=== PATIENT | female | born 1965 | race Hispanic/Latino ===

== ENCOUNTER 2021-01-25 00:36 | Inpatient (IN) | payer BC ==
[~2021-01-25] VITALS: Ht 157.5 cm; Wt 67.1 kg
[2021-01-25] VITALS (13 sets, daily range): BP systolic 116–171; BP diastolic 55–86
[2021-01-25] MEDS ORDERED: ASPIRIN 325MG TAB PO ONE (01:00)
[2021-01-25] MEDS ORDERED: ASPIRIN 81MG CHEW TAB ONE (01:04)
[2021-01-25] MEDS ORDERED: NITROGLYCERIN 1GM OINT 1 INCH/1GM TD ONE ×2 (01:05→01:30)
[2021-01-25] MEDS ORDERED: ASPIRIN 325MG TAB ONE (01:08)
[2021-01-25 01:15] LABS: BASOPHILS % (AUTO) 0.8 % (0.0-5.0); EOSINOPHILS % (AUTO) 2.1 % (0.0-8.0); HEMATOCRIT 43.3 % (36-48); LYMPHOCYTES % (AUTO) 36.9 % (21.0-51.0); MEAN CORPUSCULAR HEMOGLOBIN 28.5 pg (27.0-33.0); MEAN CORPUSCULAR VOLUME 86.4 fL (79-99); MONOCYTES % (AUTO) 8.9 % (3.0-13.0); NEUTROPHILS % (AUTO) 50.9 % (40.0-77.0); PLATELET COUNT (AUTO) 283 K/uL (130-400); RED BLOOD CELL COUNT(AUTO) 5.01 MIL/uL (4.00-5.50); WHITE BLOOD COUNT (AUTO) 11.3 K/uL (4.8-10.8)
[2021-01-25 01:31] LABS: INR 0.94 (0.85-1.15); PROTHROMBIN TIME 10.3 SEC (9.6-11.6)
[2021-01-25] MEDS ORDERED: METF750T46 PO (01:32)
[2021-01-25 01:33] LABS: ALBUMIN 3.3 g/dL (3.5-5.0); BILIRUBIN,TOTAL 0.3 mg/dL (0.2-1.0); CREATININE 0.6 mg/dL (0.5-1.5); PARTIAL THROMBOPLASTIN TIME 26.5 SEC (26.3-35.5); TOTAL PROTEIN, SERUM 7.4 g/dL (6.0-8.3)
[2021-01-25 01:39] LABS: B-TYPE NATRIURETIC PEPTIDE 180 pg/mL (0-100)
[2021-01-25] MEDS ORDERED: POTA-79 PO (01:41)
[2021-01-25] MEDS ORDERED: PIOG15TA66 PO (01:41)
[2021-01-25] MEDS ORDERED: METO100T14 PO (01:41)
[2021-01-25] MEDS ORDERED: AMLO-257 PO (01:41)
[2021-01-25] MEDS ORDERED: GLIM2TAB30 PO (01:41)
[2021-01-25] MEDS ORDERED: LISI40TA9 PO (01:41)
[2021-01-25] MEDS ORDERED: FURO40TA5 PO (01:41)
[2021-01-25 01:59] LABS: APPEARANCE,URINE Clear (CLEAR); BILIRUBIN,URINE Negative (NEGATIVE); COLOR,URINE Yellow (YELLOW); GLUCOSE, URINE (UA) 500 mg/dL (NEGATIVE); KETONES,URINE Negative (NEGATIVE); LEUKOCYTE ESTERASE ,URINE Negative (NEGATIVE); NITRATE,URINE Negative (NEGATIVE); OCCULT BLOOD,URINE Negative (NEGATIVE); PH,URINE 5.5 (5.0-8.0); PROTEIN,URINE Negative (NEGATIVE); UROBILINOGEN,URINE 0.2 mg/dL (0.2-1.0)
[2021-01-25] MEDS ORDERED: NITROGLYCERIN 0.4 MG SL TAB SL PRN (02:00)
[2021-01-25] MEDS ORDERED: ONDANSETRON 4MG INJ IV PRN (02:00)
[2021-01-25] MEDS: 0.9%NACL 1000ML 1,000 ML IV SCH ×3 (02:13→20:36)
[2021-01-25 02:22] LABS: BACTERIA,URINE None Seen /HPF (None Seen); RBC,URINE None Seen /HPF (0-1); SQUAMOUS EPITHELIAL CELL,UR Few /HPF (0-2); WBC,URINE None Seen /HPF (0-1); YEAST,URINE BUDDING None Seen /HPF (None Seen)
[2021-01-25 02:26] LABS: AMPHET/METH SCREEN,URINE NEGATIVE (NEGATIVE); BARBITURATE SCREEN, URINE NEGATIVE (NEGATIVE); BENZODIAZEPINES SCREEN,URINE NEGATIVE (NEGATIVE); CANNABINOID SCREEN,URINE NEGATIVE (NEGATIVE); COCAINE SCREEN,URINE NEGATIVE (NEGATIVE); OPIATE SCREEN,URINE NEGATIVE (NEGATIVE); PHENCYCLIDINE SCREEN,URINE NEGATIVE (NEGATIVE)
[2021-01-25 02:27] LABS: HEMOGLOBIN A1C 11.9 % (4.0-6.0)
[2021-01-25] MEDS: FAMOTIDINE 20MG TAB PO SCH ×3 (02:56→20:36)
[2021-01-25] MEDS ORDERED: DEXTROSE 50%-WATER 50 ML DISP.SYRIN IV PRN (03:00)
[2021-01-25] MEDS ORDERED: GLUCAGON 1MG KIT 1 MG ML IM PRN (03:00)
[2021-01-25] MEDS: ASPIRIN 81 MG EC TAB PO SCH (08:24)
[2021-01-25] MEDS: INSULIN HUMULIN R 100 UNIT/ML 3ML SQ SCH ×4 (08:24→20:36)
[2021-01-25] MEDS: NICOTINE 21 MG/ 24 HR PATCH TD SCH (08:25)
[2021-01-25] MEDS: ENOXAPARIN SODIUM 40 MG/0.4 ML SYRINGE SQ SCH (08:25)
[2021-01-25] MEDS: METOPROLOL TARTRATE 25 MG TAB PO SCH ×2 (08:25→20:36)
[2021-01-25] MEDS ORDERED: FAMOTIDINE 20MG TAB PO SCH (09:00)
[2021-01-25] MEDS: ACETAMINOPHEN 325 MG TAB PO PRN ×2 (11:24→20:35)
[2021-01-26] VITALS (8 sets, daily range): BP systolic 140–164; BP diastolic 68–90
[2021-01-26] MEDS: ACETAMINOPHEN 325 MG TAB PO PRN ×2 (04:12→18:05)
[2021-01-26 06:34] LABS: BASOPHILS % (AUTO) 0.8 % (0.0-5.0); EOSINOPHILS % (AUTO) 1.7 % (0.0-8.0); LYMPHOCYTES % (AUTO) 28.7 % (21.0-51.0); MEAN CORPUSCULAR HEMOGLOBIN 27.7 pg (27.0-33.0); MEAN CORPUSCULAR HGB CONC 31.8 g/dL (32.0-36.0); MEAN CORPUSCULAR VOLUME 87.1 fL (79-99); MONOCYTES % (AUTO) 9.8 % (3.0-13.0); NEUTROPHILS % (AUTO) 58.6 % (40.0-77.0); PLATELET COUNT (AUTO) 251 K/uL (130-400); RED BLOOD CELL COUNT(AUTO) 5.05 MIL/uL (4.00-5.50); RED CELL DISTRIBUTION WIDTH 13.2 % (11.0-15.5)
[2021-01-26 06:52] LABS: ALBUMIN 3.1 g/dL (3.5-5.0); BILIRUBIN,TOTAL 0.5 mg/dL (0.2-1.0); CREATININE 0.5 mg/dL (0.5-1.5); MAGNESIUM 1.9 mg/dL (1.80-2.40); POTASSIUM 3.8 mmol/L (3.5-5.1)
[2021-01-26] MEDS: FAMOTIDINE 20MG TAB PO SCH ×2 (08:39→21:30)
[2021-01-26] MEDS: ASPIRIN 81 MG EC TAB PO SCH (08:39)
[2021-01-26] MEDS: ATORVASTATIN 10 MG TABLET PO SCH (08:39)
[2021-01-26] MEDS: METOPROLOL TARTRATE 25 MG TAB PO SCH ×2 (08:39→21:30)
[2021-01-26] MEDS: FENOFIBRATE NANOCRYSTALLIZED 145 MG TAB PO SCH (08:39)
[2021-01-26] MEDS: ENOXAPARIN SODIUM 40 MG/0.4 ML SYRINGE SQ SCH (08:40)
[2021-01-26] MEDS: NICOTINE 21 MG/ 24 HR PATCH TD SCH (08:40)
[2021-01-26] MEDS: INSULIN HUMULIN R 100 UNIT/ML 3ML SQ SCH ×5 (09:05→21:30)
[2021-01-26] MEDS: INSULIN GLARGINE 100 UNITS/ML 10 ML VIAL SQ SCH (21:31)
[2021-01-27] VITALS (8 sets, daily range): BP systolic 128–159; BP diastolic 68–90
[2021-01-27] MEDS: ACETAMINOPHEN 325 MG TAB PO PRN ×2 (02:51→14:54)
[2021-01-27] MEDS: INSULIN HUMULIN R 100 UNIT/ML 3ML SQ SCH ×9 (07:30→21:43)
[2021-01-27] MEDS: ATORVASTATIN 10 MG TABLET PO SCH (08:22)
[2021-01-27] MEDS: FAMOTIDINE 20MG TAB PO SCH ×2 (08:22→21:00)
[2021-01-27] MEDS: METOPROLOL TARTRATE 25 MG TAB PO SCH ×2 (08:22→21:41)
[2021-01-27] MEDS: ENOXAPARIN SODIUM 40 MG/0.4 ML SYRINGE SQ SCH (08:22)
[2021-01-27] MEDS: ASPIRIN 81 MG EC TAB PO SCH (08:22)
[2021-01-27] MEDS: FENOFIBRATE NANOCRYSTALLIZED 145 MG TAB PO SCH (08:22)
[2021-01-27] MEDS: NICOTINE 21 MG/ 24 HR PATCH TD SCH (10:05)
[2021-01-27] MEDS ORDERED: ISOSORBIDE MONO 30MG SR TAB PO SCH (10:30)
[2021-01-27] MEDS: INSULIN GLARGINE 100 UNITS/ML 10 ML VIAL SQ SCH (21:42)
[2021-01-28 04:00] VITALS: BP 146/84
[2021-01-28] MEDS: INSULIN HUMULIN R 100 UNIT/ML 3ML SQ SCH ×7 (07:30→21:20)
[2021-01-28 08:00] VITALS: BP 160/82
[2021-01-28] MEDS ORDERED: REGADENOSON 0.4 MG/5 ML PF SYG IVP SCH (08:00)
[2021-01-28 12:00] VITALS: BP 145/78
[2021-01-28] MEDS: NICOTINE 21 MG/ 24 HR PATCH TD SCH (12:02)
[2021-01-28] MEDS: ENOXAPARIN SODIUM 40 MG/0.4 ML SYRINGE SQ SCH (12:03)
[2021-01-28] MEDS: METOPROLOL TARTRATE 25 MG TAB PO SCH ×2 (12:07→21:14)
[2021-01-28] MEDS: ASPIRIN 81 MG EC TAB PO SCH (12:07)
[2021-01-28] MEDS: ATORVASTATIN 10 MG TABLET PO SCH (12:07)
[2021-01-28] MEDS: FAMOTIDINE 20MG TAB PO SCH ×2 (12:07→21:14)
[2021-01-28] MEDS: FENOFIBRATE NANOCRYSTALLIZED 145 MG TAB PO SCH (12:07)
[2021-01-28] MEDS: ISOSORBIDE MONO 30MG SR TAB PO SCH (12:08)
[2021-01-28] MEDS ORDERED: TRAMADOL HCL 50 MG TABLET ONE (15:11)
[2021-01-28] MEDS: ACETAMINOPHEN 325 MG TAB PO PRN (15:19)
[2021-01-28] MEDS ORDERED: TRAMADOL HCL 50 MG TABLET PO SCH (15:30)
[2021-01-28 16:00] VITALS: BP 129/69
[2021-01-28 20:00] VITALS: BP 130/81
[2021-01-28] MEDS: INSULIN GLARGINE 100 UNITS/ML 10 ML VIAL SQ SCH (21:19)
[2021-01-29] VITALS: BP 155/82
[2021-01-29 04:00] VITALS: BP 150/86
[2021-01-29 06:25] LABS: BASOPHILS % (AUTO) 0.6 % (0.0-5.0); EOSINOPHILS % (AUTO) 2.1 % (0.0-8.0); HEMATOCRIT 42.4 % (36-48); LYMPHOCYTES % (AUTO) 31.7 % (21.0-51.0); MEAN CORPUSCULAR HEMOGLOBIN 27.8 pg (27.0-33.0); MEAN CORPUSCULAR HGB CONC 32.1 g/dL (32.0-36.0); MEAN CORPUSCULAR VOLUME 86.7 fL (79-99); MONOCYTES % (AUTO) 16.9 % (3.0-13.0); NEUTROPHILS % (AUTO) 48.4 % (40.0-77.0); PLATELET COUNT (AUTO) 230 K/uL (130-400); RED BLOOD CELL COUNT(AUTO) 4.89 MIL/uL (4.00-5.50); RED CELL DISTRIBUTION WIDTH 13.2 % (11.0-15.5)
[2021-01-29 06:34] LABS: CREATININE 0.6 mg/dL (0.5-1.5); MAGNESIUM 1.9 mg/dL (1.80-2.40); POTASSIUM 3.4 mmol/L (3.5-5.1)
[2021-01-29] MEDS: INSULIN HUMULIN R 100 UNIT/ML 3ML SQ SCH ×4 (06:38→21:20)
[2021-01-29 08:00] VITALS: BP 138/80
[2021-01-29] MEDS ORDERED: KCL 20 MEQ ERTAB PO SCH (08:30)
[2021-01-29] MEDS: ASPIRIN 81 MG EC TAB PO SCH (09:56)
[2021-01-29] MEDS: FAMOTIDINE 20MG TAB PO SCH ×2 (09:57→20:07)
[2021-01-29] MEDS: ISOSORBIDE MONO 30MG SR TAB PO SCH (09:57)
[2021-01-29] MEDS: ATORVASTATIN 10 MG TABLET PO SCH (09:57)
[2021-01-29] MEDS: AMLODIPINE 5 MG TAB PO SCH (09:57)
[2021-01-29] MEDS: METOPROLOL TARTRATE 25 MG TAB PO SCH ×2 (09:57→20:07)
[2021-01-29] MEDS: FENOFIBRATE NANOCRYSTALLIZED 145 MG TAB PO SCH (09:57)
[2021-01-29] MEDS: ENOXAPARIN SODIUM 40 MG/0.4 ML SYRINGE SQ SCH (09:58)
[2021-01-29] MEDS ORDERED: IOHEXOL-350 75 ML VIAL IV ONE (11:40)
[2021-01-29 12:00] VITALS: BP 140/84
[2021-01-29] MEDS: ACETAMINOPHEN 325 MG TAB PO PRN (15:20)
[2021-01-29] MEDS: NICOTINE 21 MG/ 24 HR PATCH TD SCH (15:20)
[2021-01-29 20:24] VITALS: BP 125/71
[2021-01-29] MEDS: INSULIN GLARGINE 100 UNITS/ML 10 ML VIAL SQ SCH (21:00)
[2021-01-29 23:10] VITALS: BP 144/75
[2021-01-30] VITALS (12 sets, daily range): BP systolic 120–155; BP diastolic 72–88
[2021-01-30] MEDS: INSULIN HUMULIN R 100 UNIT/ML 3ML SQ SCH ×3 (06:27→20:25)
[2021-01-30 06:53] LABS: BASOPHILS % (AUTO) 0.8 % (0.0-5.0); EOSINOPHILS % (AUTO) 2.5 % (0.0-8.0); HEMATOCRIT 44.3 % (36-48); LYMPHOCYTES % (AUTO) 28.4 % (21.0-51.0); MEAN CORPUSCULAR HEMOGLOBIN 28.1 pg (27.0-33.0); MEAN CORPUSCULAR HGB CONC 31.6 g/dL (32.0-36.0); MEAN CORPUSCULAR VOLUME 88.8 fL (79-99); MONOCYTES % (AUTO) 13.9 % (3.0-13.0); NEUTROPHILS % (AUTO) 54.2 % (40.0-77.0); PLATELET COUNT (AUTO) 238 K/uL (130-400); RED BLOOD CELL COUNT(AUTO) 4.99 MIL/uL (4.00-5.50); RED CELL DISTRIBUTION WIDTH 13.2 % (11.0-15.5); WHITE BLOOD COUNT (AUTO) 6.4 K/uL (4.8-10.8)
[2021-01-30 07:04] LABS: CREATININE 0.6 mg/dL (0.5-1.5); POTASSIUM 3.9 mmol/L (3.5-5.1)
[2021-01-30] MEDS: FENOFIBRATE NANOCRYSTALLIZED 145 MG TAB PO SCH (09:00)
[2021-01-30] MEDS: ASPIRIN 81 MG EC TAB PO SCH (09:00)
[2021-01-30] MEDS: AMLODIPINE 5 MG TAB PO SCH (09:00)
[2021-01-30] MEDS: ATORVASTATIN 10 MG TABLET PO SCH (09:00)
[2021-01-30] MEDS: ISOSORBIDE MONO 30MG SR TAB PO SCH (09:00)
[2021-01-30] MEDS: METOPROLOL TARTRATE 25 MG TAB PO SCH ×2 (09:00→20:16)
[2021-01-30] MEDS: FAMOTIDINE 20MG TAB PO SCH ×2 (09:00→20:16)
[2021-01-30] MEDS: NICOTINE 21 MG/ 24 HR PATCH TD SCH (09:00)
[2021-01-30] MEDS: ENOXAPARIN SODIUM 40 MG/0.4 ML SYRINGE SQ SCH (09:00)
[2021-01-30] MEDS ORDERED: IOHEXOL-350 50ML VIAL IV ONE ×2 (09:38→11:04)
[2021-01-30] MEDS ORDERED: SODIUM BICARB 50MEQ 50ML VIAL 50 ML ONE (09:38)
[2021-01-30] MEDS ORDERED: NITROGLYCERIN 2 MG VIAL IV ONE (09:38)
[2021-01-30] MEDS ORDERED: FENTANYL CITRATE PF 50 MCG/1 ML 2ML VIAL ONE (09:39)
[2021-01-30] MEDS ORDERED: MIDAZOLAM HCL 1 MG/ML 2ML VIAL ONE (09:39)
[2021-01-30] MEDS ORDERED: LIDOCAINE HCL 400MG/20ML VIAL ONE (09:39)
[2021-01-30] MEDS ORDERED: IOHEXOL 350 MG/ML 100ML INFUS..BTL IV ONE ×2 (09:39→11:04)
[2021-01-30] MEDS ORDERED: BIVALIRUDIN 250 MG/VIAL IV ONE (10:22)
[2021-01-30] MEDS ORDERED: LABETALOL 20MG VIAL IV ONE (10:30)
[2021-01-30] MEDS ORDERED: CLOPIDOGREL 300MG TAB ONE (11:40)
[2021-01-30] MEDS ORDERED: ASPIRIN 325MG EC TAB PO ONE (11:40)
[2021-01-30] MEDS ORDERED: 0.9%NACL 1000ML 1,000 ML IV SCH (12:00)
[2021-01-30] MEDS: INSULIN GLARGINE 100 UNITS/ML 10 ML VIAL SQ SCH (20:25)
[2021-01-31 03:53] VITALS: BP 135/83
[2021-01-31 05:06] LABS: HEMATOCRIT 40.8 % (36-48); MEAN CORPUSCULAR HEMOGLOBIN 28.3 pg (27.0-33.0); MEAN CORPUSCULAR HGB CONC 32.6 g/dL (32.0-36.0); MEAN CORPUSCULAR VOLUME 86.8 fL (79-99); RED BLOOD CELL COUNT(AUTO) 4.7 MIL/uL (4.00-5.50); RED CELL DISTRIBUTION WIDTH 12.9 % (11.0-15.5); WHITE BLOOD COUNT (AUTO) 7.6 K/uL (4.8-10.8)
[2021-01-31 05:20] LABS: CREATININE 0.6 mg/dL (0.5-1.5); POTASSIUM 3.7 mmol/L (3.5-5.1)
[2021-01-31] MEDS: INSULIN HUMULIN R 100 UNIT/ML 3ML SQ SCH ×4 (06:28→21:26)
[2021-01-31 08:13] VITALS: BP 117/72
[2021-01-31] MEDS: ATORVASTATIN 40 MG TABLET PO SCH (09:05)
[2021-01-31] MEDS: AMLODIPINE 5 MG TAB PO SCH (09:05)
[2021-01-31] MEDS: ASPIRIN 81 MG EC TAB PO SCH (09:06)
[2021-01-31] MEDS: FAMOTIDINE 20MG TAB PO SCH ×2 (09:06→20:45)
[2021-01-31] MEDS: FENOFIBRATE NANOCRYSTALLIZED 145 MG TAB PO SCH (09:06)
[2021-01-31] MEDS: ISOSORBIDE MONO 30MG SR TAB PO SCH (09:06)
[2021-01-31] MEDS: CLOPIDOGREL 75MG TAB PO SCH (09:06)
[2021-01-31] MEDS: METOPROLOL TARTRATE 25 MG TAB PO SCH ×2 (09:06→20:45)
[2021-01-31] MEDS: ENOXAPARIN SODIUM 40 MG/0.4 ML SYRINGE SQ SCH (09:07)
[2021-01-31] MEDS: NICOTINE 21 MG/ 24 HR PATCH TD SCH (09:13)
[2021-01-31] MEDS: ACETAMINOPHEN 325 MG TAB PO PRN (13:14)
[2021-01-31 16:00] VITALS: BP 111/74
[2021-01-31 20:00] VITALS: BP 142/73
[2021-01-31] MEDS: INSULIN GLARGINE 100 UNITS/ML 10 ML VIAL SQ SCH (21:28)
[2021-01-31 23:45] VITALS: BP 137/86
[2021-02-01] MEDS: TRAMADOL HCL 50 MG TABLET PO PRN ×2 (01:34→10:20)
[2021-02-01 03:45] VITALS: BP 153/74
[2021-02-01 05:24] LABS: BASOPHILS % (AUTO) 0.3 % (0.0-5.0); EOSINOPHILS % (AUTO) 2.2 % (0.0-8.0); HEMATOCRIT 38.8 % (36-48); LYMPHOCYTES % (AUTO) 39.4 % (21.0-51.0); MEAN CORPUSCULAR HEMOGLOBIN 28.2 pg (27.0-33.0); MEAN CORPUSCULAR HGB CONC 32.7 g/dL (32.0-36.0); MONOCYTES % (AUTO) 12.6 % (3.0-13.0); NEUTROPHILS % (AUTO) 45.2 % (40.0-77.0); PLATELET COUNT (AUTO) 207 K/uL (130-400); RED BLOOD CELL COUNT(AUTO) 4.51 MIL/uL (4.00-5.50); RED CELL DISTRIBUTION WIDTH 12.8 % (11.0-15.5); WHITE BLOOD COUNT (AUTO) 8.8 K/uL (4.8-10.8)
[2021-02-01 05:50] LABS: CREATININE 0.6 mg/dL (0.5-1.5); POTASSIUM 3.4 mmol/L (3.5-5.1)
[2021-02-01] MEDS: INSULIN HUMULIN R 100 UNIT/ML 3ML SQ SCH ×4 (06:12→21:14)
[2021-02-01 08:00] VITALS: BP 161/81
[2021-02-01] MEDS: ENOXAPARIN SODIUM 40 MG/0.4 ML SYRINGE SQ SCH (09:00)
[2021-02-01] MEDS ORDERED: KCL 20 MEQ ERTAB PO SCH (10:00)
[2021-02-01] MEDS: ATORVASTATIN 40 MG TABLET PO SCH (10:04)
[2021-02-01] MEDS: NICOTINE 21 MG/ 24 HR PATCH TD SCH (10:04)
[2021-02-01] MEDS: ASPIRIN 81 MG EC TAB PO SCH (10:04)
[2021-02-01] MEDS: METOPROLOL TARTRATE 25 MG TAB PO SCH ×2 (10:04→21:07)
[2021-02-01] MEDS: AMLODIPINE 5 MG TAB PO SCH (10:05)
[2021-02-01] MEDS: FAMOTIDINE 20MG TAB PO SCH ×2 (10:05→21:07)
[2021-02-01] MEDS: CLOPIDOGREL 75MG TAB PO SCH (10:05)
[2021-02-01] MEDS: FENOFIBRATE NANOCRYSTALLIZED 145 MG TAB PO SCH (10:12)
[2021-02-01] MEDS: KCL 20 MEQ ERTAB PO SCH (10:13)
[2021-02-01] MEDS: ISOSORBIDE MONO 30MG SR TAB PO SCH (10:14)
[2021-02-01 11:24] VITALS: BP 136/82
[2021-02-01 17:11] VITALS: BP 115/69
[2021-02-01 20:00] VITALS: BP 130/71
[2021-02-01] MEDS: INSULIN GLARGINE 100 UNITS/ML 10 ML VIAL SQ SCH (21:14)
[2021-02-01 23:33] VITALS: BP 144/81
[2021-02-02] VITALS (12 sets, daily range): BP systolic 150–170; BP diastolic 72–102
[2021-02-02 04:28] LABS: BASOPHILS % (AUTO) 0.5 % (0.0-5.0); HEMATOCRIT 40.3 % (36-48); LYMPHOCYTES % (AUTO) 39.3 % (21.0-51.0); MEAN CORPUSCULAR HEMOGLOBIN 27.6 pg (27.0-33.0); MEAN CORPUSCULAR HGB CONC 31.5 g/dL (32.0-36.0); MEAN CORPUSCULAR VOLUME 87.6 fL (79-99); MONOCYTES % (AUTO) 10.5 % (3.0-13.0); NEUTROPHILS % (AUTO) 46.4 % (40.0-77.0); PLATELET COUNT (AUTO) 225 K/uL (130-400); RED CELL DISTRIBUTION WIDTH 12.8 % (11.0-15.5); WHITE BLOOD COUNT (AUTO) 7.4 K/uL (4.8-10.8)
[2021-02-02 04:39] LABS: INR 1.05 (0.85-1.15); PROTHROMBIN TIME 11.4 SEC (9.6-11.6)
[2021-02-02 04:59] LABS: CREATININE 0.5 mg/dL (0.5-1.5); POTASSIUM 3.8 mmol/L (3.5-5.1)
[2021-02-02] MEDS: INSULIN HUMULIN R 100 UNIT/ML 3ML SQ SCH ×4 (06:29→21:27)
[2021-02-02] MEDS: FAMOTIDINE 20MG TAB PO SCH ×2 (09:00→21:09)
[2021-02-02] MEDS: CLOPIDOGREL 75MG TAB PO SCH (09:00)
[2021-02-02] MEDS: METOPROLOL TARTRATE 25 MG TAB PO SCH ×2 (09:00→21:09)
[2021-02-02] MEDS: ATORVASTATIN 40 MG TABLET PO SCH (09:00)
[2021-02-02] MEDS: ENOXAPARIN SODIUM 40 MG/0.4 ML SYRINGE SQ SCH (09:00)
[2021-02-02] MEDS: FENOFIBRATE NANOCRYSTALLIZED 145 MG TAB PO SCH (09:00)
[2021-02-02] MEDS: ISOSORBIDE MONO 30MG SR TAB PO SCH (09:00)
[2021-02-02] MEDS: AMLODIPINE 5 MG TAB PO SCH (09:00)
[2021-02-02] MEDS: ASPIRIN 81 MG EC TAB PO SCH (09:00)
[2021-02-02] MEDS: KCL 20 MEQ ERTAB PO SCH (09:30)
[2021-02-02] MEDS: NICOTINE 21 MG/ 24 HR PATCH TD SCH (10:00)
[2021-02-02] MEDS ORDERED: SODIUM BICARB 50MEQ 50ML VIAL 50 ML ONE (10:45)
[2021-02-02] MEDS ORDERED: BIVALIRUDIN 250 MG/VIAL IV ONE (10:45)
[2021-02-02] MEDS ORDERED: HEPARIN 10,000 UNIT/10ML (1,000 UNIT/ML) VIAL ONE (10:46)
[2021-02-02] MEDS ORDERED: NITROGLYCERIN 2 MG VIAL IV ONE (10:46)
[2021-02-02] MEDS ORDERED: LIDOCAINE HCL 400MG/20ML VIAL ONE (10:46)
[2021-02-02] MEDS ORDERED: IOHEXOL 350 MG/ML 100ML INFUS..BTL IV ONE (10:50)
[2021-02-02] MEDS ORDERED: FENTANYL CITRATE PF 50 MCG/1 ML 2ML VIAL ONE (11:00)
[2021-02-02] MEDS ORDERED: MIDAZOLAM HCL 1 MG/ML 2ML VIAL ONE (11:00)
[2021-02-02] MEDS ORDERED: CLOPIDOGREL 300MG TAB ONE (11:30)
[2021-02-02] MEDS ORDERED: ASPIRIN 325MG EC TAB PO ONE (11:30)
[2021-02-02] MEDS ORDERED: CLOP75TA14 PO (11:52)
[2021-02-02] MEDS ORDERED: AEC81 PO (11:52)
[2021-02-02] MEDS ORDERED: ATOR40TA69 PO (11:52)
[2021-02-02] MEDS ORDERED: 0.9%NACL 1000ML 1,000 ML IV SCH (12:00)
[2021-02-02] MEDS: TRAMADOL HCL 50 MG TABLET PO PRN (12:16)
[2021-02-02] MEDS: ACETAMINOPHEN 325 MG TAB PO PRN (21:10)
[2021-02-02] MEDS: INSULIN GLARGINE 100 UNITS/ML 10 ML VIAL SQ SCH (21:27)
[2021-02-03] VITALS: BP 149/90
[2021-02-03 04:00] VITALS: BP 150/90
[2021-02-03 05:59] LABS: BASOPHILS % (AUTO) 0.5 % (0.0-5.0); EOSINOPHILS % (AUTO) 2.8 % (0.0-8.0); HEMATOCRIT 43.2 % (36-48); LYMPHOCYTES % (AUTO) 33.8 % (21.0-51.0); MEAN CORPUSCULAR HEMOGLOBIN 27.8 pg (27.0-33.0); MEAN CORPUSCULAR HGB CONC 31.7 g/dL (32.0-36.0); MEAN CORPUSCULAR VOLUME 87.6 fL (79-99); MONOCYTES % (AUTO) 10.2 % (3.0-13.0); NEUTROPHILS % (AUTO) 52.3 % (40.0-77.0); PLATELET COUNT (AUTO) 246 K/uL (130-400); RED BLOOD CELL COUNT(AUTO) 4.93 MIL/uL (4.00-5.50); RED CELL DISTRIBUTION WIDTH 12.7 % (11.0-15.5); WHITE BLOOD COUNT (AUTO) 8.2 K/uL (4.8-10.8)
[2021-02-03 06:10] LABS: CREATININE 0.6 mg/dL (0.5-1.5); POTASSIUM 3.8 mmol/L (3.5-5.1)
[2021-02-03] MEDS: INSULIN HUMULIN R 100 UNIT/ML 3ML SQ SCH (06:28)
[2021-02-03 08:00] VITALS: BP 132/70
[2021-02-03] MEDS ORDERED: PANT40TA55 PO (08:53)
[2021-02-03] MEDS ORDERED: CLOPIDOGREL 75MG TAB PO SCH (09:00)
[2021-02-03] MEDS ORDERED: ASPIRIN 81MG CHEW TAB PO SCH (09:00)
[2021-02-03] MEDS: KCL 20 MEQ ERTAB PO SCH (09:30)
[2021-02-03] MEDS: CLOPIDOGREL 75MG TAB PO SCH (09:43)
[2021-02-03] MEDS: FENOFIBRATE NANOCRYSTALLIZED 145 MG TAB PO SCH (09:43)
[2021-02-03] MEDS: FAMOTIDINE 20MG TAB PO SCH (09:43)
[2021-02-03] MEDS: AMLODIPINE 5 MG TAB PO SCH (09:43)
[2021-02-03] MEDS: ATORVASTATIN 40 MG TABLET PO SCH (09:43)
[2021-02-03] MEDS: ISOSORBIDE MONO 30MG SR TAB PO SCH (09:43)
[2021-02-03] MEDS: NICOTINE 21 MG/ 24 HR PATCH TD SCH (09:43)
[2021-02-03] MEDS: METOPROLOL TARTRATE 25 MG TAB PO SCH (09:43)
[2021-02-03] MEDS: ASPIRIN 81 MG EC TAB PO SCH (09:43)
[2021-02-03 11:00] VITALS: BP 125/86
== END 2021-02-03 13:30 | disposition home or self-care (01) | DRG 246 ==
LOC: EDBD 00:36 → EDH 00:36 → INTOOBSV 01:54 → OBSVTOIN 01:54 → EDHIP 01:54 → 3CH 01-27 21:38
PROVIDERS: ADMIT Hospitalist; ATTEND Hospitalist
PROC: 027135Z Dilation of Coronary Artery, Two Arteries with Two Drug-eluting Intraluminal Devices, Percutaneous Approach (ICD-10-PCS; principal; 2021-01-30)
PROC: 4A023N7 Measurement of Cardiac Sampling and Pressure, Left Heart, Percutaneous Approach (ICD-10-PCS; 2021-01-30)
PROC: B2111ZZ Fluoroscopy of Multiple Coronary Arteries using Low Osmolar Contrast (ICD-10-PCS; 2021-01-30)
PROC: B2151ZZ Fluoroscopy of Left Heart using Low Osmolar Contrast (ICD-10-PCS; 2021-01-30)
PROC: B2181ZZ Fluoroscopy of Left Internal Mammary Bypass Graft using Low Osmolar Contrast (ICD-10-PCS; 2021-01-30)
PROC: B2171ZZ Fluoroscopy of Right Internal Mammary Bypass Graft using Low Osmolar Contrast (ICD-10-PCS; 2021-01-30)
PROC: B21F1ZZ Fluoroscopy of Other Bypass Graft using Low Osmolar Contrast (ICD-10-PCS; 2021-01-30)
PROC: 4A033BC Measurement of Arterial Pressure, Coronary, Percutaneous Approach (ICD-10-PCS; 2021-01-30)
PROC: 027034Z Dilation of Coronary Artery, One Artery with Drug-eluting Intraluminal Device, Percutaneous Approach (ICD-10-PCS; 2021-02-02)
DX: T82.855A Stenosis of coronary artery stent, initial encounter (principal); I21.4 Non-ST elevation (NSTEMI) myocardial infarction; I50.31 Acute diastolic (congestive) heart failure; I25.10 Atherosclerotic heart disease of native coronary artery without angina pectoris; E78.5 Hyperlipidemia, unspecified; E11.65 Type 2 diabetes mellitus with hyperglycemia; E78.00 Pure hypercholesterolemia, unspecified; E78.1 Pure hyperglyceridemia; F17.210 Nicotine dependence, cigarettes, uncomplicated; Y83.1 Surgical operation with implant of artificial internal device as the cause of abnormal reaction of the patient, or of later complication, without mention of misadventure at the time of the procedure; Z95.1 Presence of aortocoronary bypass graft; Z90.49 Acquired absence of other specified parts of digestive tract; Z90.710 Acquired absence of both cervix and uterus; Z87.11 Personal history of peptic ulcer disease; I25.2 Old myocardial infarction; Z79.02 Long term (current) use of antithrombotics/antiplatelets; Y92.89 Other specified places as the place of occurrence of the external cause; Z79.82 Long term (current) use of aspirin; Z79.899 Other long term (current) drug therapy; Z83.3 Family history of diabetes mellitus; I11.0 Hypertensive heart disease with heart failure
CPT/HCPCS: 36415; 70450; 70496; 70498; 71045; 72125; 78452; 80048; 80053; 80061; 80305; 81001; 82550; 82948; 83036; 83735; 83874; 83880; 84484; 85025; 85027; 85610; 85730; 93005; 93017; 93306; 93356; 93459; 96374; 99156; 99157; A9500; C1760; C1769; C1887; C1894; C9600; C9604; G0378; J0583; J1644; J1650; J1815; J2250; J2405; J2785; J3010; J3490; J7030; Q9967

== ENCOUNTER 2022-02-19 18:58 | Emergency (ER) | payer BC ==
[~2022-02-19] VITALS: Ht 157.5 cm; Wt 65.8 kg
[~2022-02-19 18:58] MED LIST: AEC81 PO; AMLO-257 PO; ATOR40TA69 PO; CLOP75TA14 PO; FURO40TA5 PO; GLIM2TAB30 PO; LISI40TA9 PO; METF750T46 PO; METO100T14 PO; PANT40TA55 PO; PIOG15TA66 PO; POTA-79 PO
[2022-02-19 19:42] LABS: BASOPHILS % (AUTO) 0.5 % (0.0-5.0); EOSINOPHILS % (AUTO) 1.7 % (0.0-8.0); HEMATOCRIT 42.5 % (36-48); LYMPHOCYTES % (AUTO) 28.5 % (21.0-51.0); MEAN CORPUSCULAR HEMOGLOBIN 28.8 pg (27.0-33.0); MEAN CORPUSCULAR HGB CONC 33.6 g/dL (32.0-36.0); MEAN CORPUSCULAR VOLUME 85.5 fL (79-99); MONOCYTES % (AUTO) 8.1 % (3.0-13.0); NEUTROPHILS % (AUTO) 60.9 % (40.0-77.0); PLATELET COUNT (AUTO) 299 K/uL (130-400); RED BLOOD CELL COUNT(AUTO) 4.97 MIL/uL (4.00-5.50); RED CELL DISTRIBUTION WIDTH 13.2 % (11.0-15.5); WHITE BLOOD COUNT (AUTO) 10.5 K/uL (4.8-10.8)
[2022-02-19 19:58] LABS: CREATININE 0.6 mg/dL (0.5-1.5); POTASSIUM 3.8 mmol/L (3.5-5.1)
[2022-02-19 20:03] LABS: ALBUMIN 3.5 g/dL (3.5-5.0); TOTAL PROTEIN, SERUM 7.6 g/dL (6.0-8.3)
[2022-02-19] MEDS ORDERED: AMP/SULBAC 3GM+NS 100ML 100 ML IV STA (21:09)
[2022-02-19] MEDS ORDERED: IOHEXOL 350 MG/ML 100ML INFUS..BTL IV ONE (21:23)
[2022-02-19] MEDS ORDERED: 0.9%NACL 1000ML 1,000 ML IV ONE (21:30)
[2022-02-19] MEDS ORDERED: ONDANSETRON 4MG INJ IVP ONE (23:00)
[2022-02-19] MEDS ORDERED: MORPHINE 4 MG SYG IVP ONE (23:00)
[2022-02-20] MEDS ORDERED: AMOX875T2 PO (00:08)
[2022-02-20 00:50] VITALS: BP 158/92
== END 2022-02-20 00:51 | disposition home or self-care (01) ==
LOC: EDH 18:58
DX: K12.2 Cellulitis and abscess of mouth (principal); I25.10 Atherosclerotic heart disease of native coronary artery without angina pectoris; E78.00 Pure hypercholesterolemia, unspecified; E11.9 Type 2 diabetes mellitus without complications; I10 Essential (primary) hypertension; I25.2 Old myocardial infarction; Z79.899 Other long term (current) drug therapy; Z79.82 Long term (current) use of aspirin; Z79.84 Long term (current) use of oral hypoglycemic drugs; Z90.49 Acquired absence of other specified parts of digestive tract; Z98.890 Other specified postprocedural states
CPT/HCPCS: 99284; 96365; 70491; 96375; 96361; 80053; 85025; 87040 ×2; 83605; 36415; J7030; J2405; J2270; Q9967; J0295

== ENCOUNTER 2022-08-25 00:36 | Observation (INO) | payer BC ==
[~2022-08-25] VITALS: Ht 157.5 cm; Wt 65.8 kg
[~2022-08-25 00:36] MED LIST changes: +AMOX875T2 PO; +CLOP-31 PO; -CLOP75TA14 PO
[2022-08-25 01:05] LABS: BASOPHILS % (AUTO) 0.6 % (0.0-5.0); EOSINOPHILS % (AUTO) 1.6 % (0.0-8.0); HEMATOCRIT 40.1 % (36-48); LYMPHOCYTES % (AUTO) 31.4 % (21.0-51.0); MEAN CORPUSCULAR HEMOGLOBIN 27.4 pg (27.0-33.0); MEAN CORPUSCULAR HGB CONC 31.7 g/dL (32.0-36.0); MEAN CORPUSCULAR VOLUME 86.4 fL (79-99); PLATELET COUNT (AUTO) 287 K/uL (130-400); RED BLOOD CELL COUNT(AUTO) 4.64 MIL/uL (4.00-5.50); RED CELL DISTRIBUTION WIDTH 13.1 % (11.0-15.5); WHITE BLOOD COUNT (AUTO) 10.8 K/uL (4.8-10.8)
[2022-08-25 01:13] LABS: CREATININE 0.6 mg/dL (0.5-1.5); POTASSIUM 3.4 mmol/L (3.5-5.1)
[2022-08-25 01:18] LABS: ALBUMIN 3.3 g/dL (3.5-5.0); TOTAL PROTEIN, SERUM 7.3 g/dL (6.0-8.3)
[2022-08-25] MEDS ORDERED: NITROGLYCERIN 0.4 MG SL TAB SL ONE (01:22)
[2022-08-25] MEDS ORDERED: ONDANSETRON 4MG INJ ONE (01:25)
[2022-08-25] MEDS ORDERED: NITROGLYCERIN 1GM OINT 1 INCH/1GM TD ONE (01:25)
[2022-08-25] MEDS ORDERED: NITROGLYCERIN 30 GM TUBE TD ONE (02:00)
[2022-08-25] MEDS ORDERED: ONDANSETRON 4MG INJ IVP ONE (02:00)
[2022-08-25] MEDS ORDERED: ONDANSETRON 4MG INJ IVP PRN (02:30)
[2022-08-25] MEDS ORDERED: NITROGLYCERIN 0.4 MG SL TAB SL PRN (02:30)
[2022-08-25] MEDS ORDERED: ACETAMINOPHEN 325 MG TAB PO PRN (02:30)
[2022-08-25] MEDS: ASPIRIN 81MG CHEW TAB PO SCH ×2 (02:47→09:53)
[2022-08-25] MEDS ORDERED: SERT-439 PO (04:14)
[2022-08-25] MEDS ORDERED: VITAMIN D PO (04:16)
[2022-08-25] MEDS ORDERED: LINA5TAB PO (04:17)
[2022-08-25] MEDS ORDERED: AMLO-257 PO (04:17)
[2022-08-25] MEDS ORDERED: TICA90TA PO (04:18)
[2022-08-25] MEDS ORDERED: [UNRECOGNIZED DRUG - REMARK] (04:20)
[2022-08-25 04:40] VITALS: BP 122/74
[2022-08-25] MEDS ORDERED: INSULIN HUMULIN R 100 UNIT/ML 3ML SQ SCH (07:30)
[2022-08-25 08:15] VITALS: BP 126/72
[2022-08-25] MEDS: FAMOTIDINE 20MG VIAL IV SCH ×2 (09:53→21:51)
[2022-08-25] MEDS: ENOXAPARIN SODIUM 40 MG/0.4 ML SYRINGE SQ SCH (09:54)
[2022-08-25] MEDS ORDERED: DEXTROSE 50%-WATER 50 ML DISP.SYRIN IV PRN (10:30)
[2022-08-25] MEDS ORDERED: KCL 20 MEQ ERTAB PO PRN (10:30)
[2022-08-25] MEDS ORDERED: POTASSIUM CHLORIDE 10% ELIXIR 20 MEQ/15 ML UDCUP PO PRN (10:30)
[2022-08-25] MEDS ORDERED: POTASSIUM CHLORIDE 20MEQ/100ML 100 ML IV PRN (10:30)
[2022-08-25] MEDS ORDERED: GLUCAGON 1MG KIT 1 MG ML IM PRN (10:30)
[2022-08-25] MEDS ORDERED: LIDOCAINE HCL-MPF 1% 2ML VIAL IV PRN (10:30)
[2022-08-25 10:40] VITALS: BP 125/79
[2022-08-25 10:43] LABS: HEMOGLOBIN A1C 11.1 % (4.0-6.0)
[2022-08-25] MEDS ORDERED: TICAGRELOR 90 MG TABLET PO SCH (11:00)
[2022-08-25] MEDS: INSULIN HUMULIN R 100 UNIT/ML 3ML SQ SCH ×5 (13:03→22:04)
[2022-08-25 15:40] VITALS: BP 107/66
[2022-08-25 20:00] VITALS: BP 130/69
[2022-08-25] MEDS ORDERED: INSULIN GLARGINE 100 UNITS/ML 10 ML VIAL SQ SCH (21:00)
[2022-08-25] MEDS ORDERED: ATORVASTATIN 40 MG TABLET PO SCH (21:00)
[2022-08-25] MEDS: METOPROLOL TARTRATE 50 MG TAB PO SCH (21:51)
[2022-08-25] MEDS: TICAGRELOR 90 MG TABLET PO SCH (21:52)
[2022-08-26] VITALS: BP 143/70
[2022-08-26 04:00] VITALS: BP 134/71
[2022-08-26 05:51] LABS: BASOPHILS % (AUTO) 0.7 % (0.0-5.0); EOSINOPHILS % (AUTO) 1.9 % (0.0-8.0); HEMATOCRIT 42.2 % (36-48); LYMPHOCYTES % (AUTO) 33.5 % (21.0-51.0); MEAN CORPUSCULAR HEMOGLOBIN 28.2 pg (27.0-33.0); MEAN CORPUSCULAR HGB CONC 31.8 g/dL (32.0-36.0); MEAN CORPUSCULAR VOLUME 88.8 fL (79-99); MONOCYTES % (AUTO) 8.5 % (3.0-13.0); NEUTROPHILS % (AUTO) 55.1 % (40.0-77.0); PLATELET COUNT (AUTO) 286 K/uL (130-400); RED BLOOD CELL COUNT(AUTO) 4.75 MIL/uL (4.00-5.50); RED CELL DISTRIBUTION WIDTH 13.2 % (11.0-15.5); WHITE BLOOD COUNT (AUTO) 9.2 K/uL (4.8-10.8)
[2022-08-26 06:08] LABS: ALBUMIN 3.2 g/dL (3.5-5.0); CREATININE 0.7 mg/dL (0.5-1.5); POTASSIUM 4.1 mmol/L (3.5-5.1); TOTAL PROTEIN, SERUM 6.9 g/dL (6.0-8.3)
[2022-08-26] MEDS: INSULIN HUMULIN R 100 UNIT/ML 3ML SQ SCH ×4 (06:11→11:50)
[2022-08-26 07:48] VITALS: BP 138/80
[2022-08-26] MEDS: ENOXAPARIN SODIUM 40 MG/0.4 ML SYRINGE SQ SCH (08:56)
[2022-08-26] MEDS: FAMOTIDINE 20MG VIAL IV SCH (08:57)
[2022-08-26] MEDS: METOPROLOL TARTRATE 50 MG TAB PO SCH (08:57)
[2022-08-26] MEDS: TICAGRELOR 90 MG TABLET PO SCH (08:57)
[2022-08-26] MEDS: ASPIRIN 81MG CHEW TAB PO SCH (08:57)
[2022-08-26] MEDS ORDERED: SERTRALINE HCL 50 MG TABLET PO SCH (09:00)
[2022-08-26] MEDS ORDERED: LISINOPRIL 40 MG TABLET PO SCH (09:00)
[2022-08-26] MEDS ORDERED: AMLODIPINE 5 MG TAB PO SCH (09:00)
[2022-08-26] MEDS ORDERED: TICA90TA PO (10:16)
== END 2022-08-26 16:00 | disposition home or self-care (01) ==
LOC: EDH 00:36 → EDHIP 02:17 → 4BH 04:39
PROVIDERS: ADMIT Hospitalist; ATTEND Hospitalist
DX: I25.110 Atherosclerotic heart disease of native coronary artery with unstable angina pectoris (principal); E87.1 Hypo-osmolality and hyponatremia; E87.6 Hypokalemia; E11.9 Type 2 diabetes mellitus without complications; I10 Essential (primary) hypertension; K21.9 Gastro-esophageal reflux disease without esophagitis; E78.5 Hyperlipidemia, unspecified; E78.00 Pure hypercholesterolemia, unspecified; I25.2 Old myocardial infarction; Z90.710 Acquired absence of both cervix and uterus; Z95.1 Presence of aortocoronary bypass graft; Z87.891 Personal history of nicotine dependence; Z79.899 Other long term (current) drug therapy
CPT/HCPCS: 96374; 96376 ×2; 96372 ×2; 99285; 83036; 82550 ×2; 83735; 83874 ×2; 84484 ×3; 80053 ×2; 85025 ×2; 82948 ×6; 36415 ×2; 71045; 97161; 93005; G0378 ×37; J3490 ×3; J2405; J1650 ×2; J1815 ×5

== ENCOUNTER → 2024-03-27 | Outpatient (CLI) | payer BC ==
[~2024-03-27] MED LIST changes: -AMOX875T2 PO; -ATOR40TA69 PO; -CLOP-31 PO; -FURO40TA5 PO; +LINA5TAB PO; -METF750T46 PO; -PIOG15TA66 PO; -POTA-79 PO; +SERT-439 PO; +TICA90TA PO; +VITAMIN D PO; +[UNRECOGNIZED DRUG - REMARK]
--- NOTE | 2024-03-29 14:46 | HMCSR ---
APPROVED REPORT EXAM: Two-dimensional and M-mode echocardiogram with Doppler and color Doppler. INDICATION ICD: I25.10 Atherosclerotic heart disease of [place] coronary artery without angina pectoris Surgery/Intervention CABG: Date: 2017 RISK FACTORS Hypertension Hyperlipidemia Diabetes 2D Dimensions RVDd3.9 cmLVEF(%)39.8 (>50%)LVED Vol(simp.)143.0 mL IVSd1.0 (0.7-1.1cm)FS(%)20 %LVES Vol(simp.)86.0 mL LVDd5.8 (3.8-5.6cm)LA (2D)4.9 (1.6-4.0cm)LVEF(%, simp.)40 % PWd1.1 (0.7-1.1cm)Ao Root(2D)2.9 (2.0-3.7cm)LA ESV INDEX (BP)40.14 mL/m2 LVDs4.6 (2.5-4.0cm)LVOT diam1.9 (1.8-2.4cm) IVC diam1.5 cm M-Mode Dimensions EPSS1.7 cm LA (MM)4.9 (1.6-4.0cm) Ao Root(MM)2.9 (2.0-3.7cm) Aortic Valve AoV Vmax1.3 m/[place] GR6.9 mmHgLVOT Vmax0.9 m/s AoV VTI0.3 mAo Mean GR3.8 mmHgLVOT VTI0.19 m KATERINE (VMAX)1.9 cm2Al P1/2T965 msAVA (VTI) 1.9 cm2 Mitral Valve MV E Vmax80.1 cm/sDECEL Uxnr415 msMR GGL830 cm2 MV A Vmax50.5 cm/sMR Mean PG87 mmHg E/A ratio1.6 MR Max PG135 mmHg TDI E/E' Ozibda88.0E/E' Tgiibaj45.5 Pulmonary Valve PV Vmax0.8 m/sPV VTI0.21 mPV Mean GR2 mmHg PV Peak GR2.9 mmHgPI End Oralia. Wolf 1.2 cm/s Tricuspid Valve TR Vmax3.2 m/sRAP (EST) 3 opZjHYDE75.7 mmHg TR Peak GR40.7 mmHg Left Ventricle The left ventricle is mildly dilated. Inferior and inferoseptal hypokinesia from base to apex. There is borderline left ventricular hypertrophy. LVEF is 40%. Grade 2 diastolic dysfunction. Right Ventricle The right ventricle is normal size. The right ventricular systolic function is normal. Atria The left atrium is moderately dilated. The right atrium is moderately dilated. Aortic Valve Aortic valve is trileaflet. Aortic valve leaflets are sclerotic but open well. Mild aortic regurgitat ion. There is no aortic valvular stenosis. Mitral Valve Mitral valve leaflets are mildly sclerotic but open well. Mitral regurgitation is moderate to severe. There is no mitral valve stenosis. Tricuspid Valve The tricuspid valve leaflets appear normal. There is moderate tricuspid regurgitation. Right ventricu lar systolic pressure is estimated at 40-50 mmHg. Pulmonic Valve The pulmonic valve leaflets are thin and pliable; valve motion is normal. There is trace to mild valv ular regurgitation. Great Vessels The aortic root is normal in size. The IVC is normal in size and collapses >50% with inspiration. Pericardium No pericardial effusion. Conclusion LVEF is 40%. Inferior and inferoseptal hypokinesia from base to apex. Grade 2 diastolic dysfunction. The left atrium is moderately dilated. Mitral regurgitation is moderate to severe. Right ventricular systolic pressure is estimated at 40-50 mmHg.
== END | disposition home or self-care (01) ==
LOC: SHCH 13:02
PROVIDERS: ATTEND Internal Medicine Cardiovascular Disease
DX: I08.8 Other rheumatic multiple valve diseases (principal); I11.9 Hypertensive heart disease without heart failure; I25.10 Atherosclerotic heart disease of native coronary artery without angina pectoris; E11.9 Type 2 diabetes mellitus without complications; E78.5 Hyperlipidemia, unspecified; Z95.1 Presence of aortocoronary bypass graft
CPT/HCPCS: 93306